=== PATIENT | female | born 1985 | race Caucasian/White ===

== ENCOUNTER 2018-02-02 14:44 | Emergency (ER) | payer OTHER ==
[~2018-02-02] VITALS: Ht 172.7 cm; Wt 74.6 kg
[2018-02-02 14:49] VITALS: Ht 172.7 cm; Wt 74.6 kg
[2018-02-02 18:10] VITALS: BP 126/86
== END 2018-02-02 18:10 | disposition home or self-care (01) ==
LOC: ED 14:44
DX: F07.81 Postconcussional syndrome (principal); Z88.5 Allergy status to narcotic agent; Z88.6 Allergy status to analgesic agent
CPT/HCPCS: J1200; J2765